=== PATIENT | female | born 1960 | race American Indian/Alaskan Native ===

== ENCOUNTER 2017-11-01 03:37 | Emergency (ER) | payer OTHER ==
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
[2017-11-01] MEDS ORDERED: NORCO 5/325 PO ONE (06:47)
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
[2017-11-01 07:25] VITALS: BP 154/76
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
== END 2017-11-01 07:24 | disposition home or self-care (01) ==
LOC: ED 03:37
DX: M25.511 Pain in right shoulder (principal); M54.5 Low back pain; V49.09XA Driver injured in collision with other motor vehicles in nontraffic accident, initial encounter; Y93.89 Activity, other specified; Y92.89 Other specified places as the place of occurrence of the external cause; Y99.8 Other external cause status
CPT/HCPCS: 72040; 72100; 72125; 99284